=== PATIENT | female | born 1950 | race Caucasian/White ===

== ENCOUNTER 2017-12-23 07:10 | Emergency (ER) | payer BC ==
[2017-12-23 07:19] VITALS: BP 157/99
--- NOTE | 2017-12-23 07:35 | EDM.PDOC ---
ED HPI GENERAL MEDICAL PROBLEM - General Chief Complaint: Upper Extremity Injury/Pain Stated Complaint: PAIN IN LEFT ARM Time Seen by Provider: 12/23/17 07:15 Source of Information: Reports: Patient, RN, RN Notes Reviewed History Limitations: Reports: No Limitations - History of Present Illness INITIAL COMMENTS - FREE TEXT/NARRATIVE: Pt presents to the ER with c/o left arm pain. She denies chest pain, neck or jaw pain, sob. SHe states she was recently on vacation and came home to a letter in the mail that told her she had nodules in her lungs and CAD. She states she has appointments upcoming for this issue. Patient denies N/V/D. She states she does have some anxiety issues at times. Patient rates the left humerus pain a 5/10. Took aspirin at home. 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 Left Arm Pain Score (Numeric/FACES): 5 - Related Data Allergies Allergy/AdvReac Type Severity Reaction Status Date / Time cefaclor Allergy Other Verified 01/03/16 12:35 erythromycin lactobionate Allergy Rash Verified 01/03/16 12:35 [From Erythrocin] Penicillins Allergy Facial Verified 01/03/16 12:35 Swelling Home Meds: Home Meds Amitriptyline HCl [Amitriptyline HCl] 10 mg PO DAILY 07/02/14 [History] Baclofen [Baclofen] 10 mg PO ASDIRECTED PRN 07/02/14 [History] Clotrimazole [Clotrimazole] 10 mg PO ASDIRECTED PRN 07/02/14 [History] Cyanocobalamin (Vitamin B12) [Vitamin B12] 1,000 mcg SQ ASDIRECTED 07/02/14 [ History] Cyclobenzaprine HCl [Cyclobenzaprine HCl] 10 mg PO ASDIRECTED 07/02/14 [History] Diclofenac Sodium [Voltaren] 1 applic TOP ASDIRECTED PRN 07/02/14 [History] Ergocalciferol (Vitamin D2) [Vitamin D2] 1 tab PO ASDIRECTED 07/02/14 [History] Hydrochlorothiazide [Hydrochlorothiazide] 25 mg PO DAILY PRN 07/02/14 [History] Levothyroxine Sodium [Synthroid] 200 mcg PO DAILY 07/02/14 [History] Losartan Potassium [Losartan Potassium] 25 mg PO DAILY 07/02/14 [History] atorvaSTATin Calcium [Atorvastatin Calcium] 20 mg PO BEDTIME 07/02/14 [History] metFORMIN [Glucophage] 1,000 mg PO BIDMEALS 07/02/14 [History] Albuterol [Ventolin HFA] 1 - 2 puff INH Q6HR PRN 12/28/15 [History] Aspirin [Halfprin] 81 mg PO DAILY 12/28/15 [History] Exenatide [Byetta] 10 mcg SQ BIDMEALS 12/28/15 [History] Fexofenadine/Pseudoephedrine [Vandana-D 12 Hour Tablet] 1 tab PO DAILY PRN 12/27 [History] Hydrocodone/Acetaminophen [[place] 10-325] 1 tab PO Q6H PRN 12/28/15 [History] Multivitamin [Multi-Day Vitamins] 1 tab PO DAILY 12/28/15 [History] Varenicline Tartrate [Chantix] 1 tab PO BID 12/28/15 [History] Diclofenac Sodium [Diclofenac Sodium] 1 tab PO TID 01/02/16 [History] Past Medical History HEENT History: Reports: Cataract, Impaired Vision Cardiovascular History: Reports: High Cholesterol, Hypertension Respiratory History: Reports: Other (See Below) Other Respiratory History: CT shows lung nodules Gastrointestinal History: Reports: Cholelithiasis Other Gastrointestinal History: VENTRAL HERNIA Genitourinary History: Reports: None 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 OB/BYN History: MISCARRIAGE Musculoskeletal History: Reports: Back Pain, Chronic, Other (See Below) Other Musculoskeletal History: DJD; STENOIS OF CERVICAL SPINE Neurological History: Reports: Other (See Below) Other Neuro History: PARESTHESIAS Psychiatric History: Reports: None Endocrine/Metabolic History: Reports: Diabetes, Type II, Hypothyroidism, Obesity /BMI 30+, Osteopenia, Vitamin D Deficiency Hematologic History: Reports: B12 Deficiency - Past Surgical History Head Surgeries/Procedures: Reports: None GI Surgical History: Reports: Cholecystectomy, Colonoscopy Female Surgical History: Reports: Section, D&C Musculoskeletal Surgical History: Reports: Carpal Tunnel, Knee Replacement, Other (See Below) Oncologic Surgical History: Reports: None Dermatological Surgical History: Reports: Other (See Below) Social & Family History - Family History Family Medical History: Noncontributory - Tobacco Use Smoking Status *Q: Former Smoker Years of Tobacco use: 40 Used Tobacco, but Quit: Yes Month Tobacco Last Used: ? Second Hand Smoke Exposure: No - Caffeine Use Caffeine Use: Reports: Coffee, Soda, Tea - Alcohol Use Days Per Week of Alcohol Use: 1 Number of Drinks Per Day: 1 Total Drinks Per Week: 1 - Recreational Drug Use Recreational Drug Use: No Review of Systems - Review of Systems Review Of Systems: ROS reveals no pertinent complaints other than HPI. ED EXAM, GENERAL - Physical Exam Exam: See Below Exam Limited By: No Limitations General Appearance: Alert, WD/WN, No Apparent Distress Eye Exam: Bilateral Eye: EOMI, Normal Inspection, PERRL Ears: Normal External Exam, Hearing Grossly Normal Nose: Normal Inspection Throat/Mouth: Normal Inspection, Normal Voice, No Airway Compromise Head: Atraumatic, Normocephalic Neck: Normal Inspection, Supple, Non-Tender, Full Range of Motion Respiratory/Chest: No Respiratory Distress, Lungs Clear, No Accessory Muscle Use , Chest Non-Tender, Decreased Breath Sounds Cardiovascular: Normal Peripheral Pulses, Regular Rate, Rhythm, No Gallop, No JVD, No Murmur, No Rub, Tachycardia Peripheral Pulses: 2+: Radial (L), Radial (R) GI/Abdominal: Normal Bowel Sounds, Soft, Non-Tender, No Organomegaly, No Distention, No Abnormal Bruit, No Mass (Female) Exam: Deferred Rectal (Female) Exam: Deferred Back Exam: Normal Inspection, Full Range of Motion, NT Extremities: Normal Inspection, Normal Range of Motion, Normal Capillary Refill , Pedal Edema, Arm Pain (left) Neurological: Alert, Oriented, CN II-XII Intact, Normal Cognition, Normal Gait, Normal Reflexes, No Motor/Sensory Deficits Psychiatric: Anxious, Tearful Skin Exam: Warm, Dry, Intact, Normal Color, No Rash Lymphatic: No Adenopathy EKG INTERPRETATION EKG Date: 12/23/17 Time: 07:36 Rhythm: Other (sinus tachycardia) Rate (Beats/Min): 105 [place]: Normal P-Wave: Present QRS: Normal ST-T: Normal QT: Normal Comparison: NA - No Prior EKG Course - Vital Signs Last Recorded V/S: Last Vital Signs Temp 98.8 F 12/23/17 07:17 Pulse 118 H 12/23/17 07:17 Resp 18 12/23/17 07:17 BP 157/99 H 12/23/17 07:17 Pulse Ox 96 12/23/17 07:17 - Orders/Labs/Meds Orders: Active Orders 24 hr Category Date Time Status EKG Documentation Completion [RC] STAT Care 12/23/17 07:36 Active Peripheral IV Care [RC] . DIRECTED Care 12/23/17 07:36 Active Chest 2V [CR] Urgent Exams 12/23/17 07:36 Taken Sodium Chloride 0.9% [Saline Flush] Med 12/23/17 07:35 Active 10 ml FLUSH ASDIRECTED PRN Peripheral IV Insertion Adult [OM.PC] Stat Oth 12/23/17 07:35 Ordered Medication Orders Sodium Chloride (Saline Flush) 10 ml FLUSH ASDIRECTED PRN PRN Reason: Keep Vein Open Last Admin: 12/23/17 07:49 Dose: 10 ml Labs: Laboratory Tests 12/23/17 12/23/17 12/23/17 Range/Units 07:44 07:44 07:44 WBC 6.7 (5.0-10.0) 10^3/uL RBC 4.72 (4.2-5.4) 10^6/uL Hgb 13.5 (12.0-16.0) g/dL Hct 42.1 (37.0-47.0) % MCV 89.2 (80-100) fL MCH 28.6 (27.0-34.0) pg MCHC 32.1 L (33.0-35.0) g/dL Plt Count 229 (150-450) 10^3/uL Neut % (Auto) 70.3 (42.2-75.2) % Lymph % (Auto) 17.2 L (20.5-50.1) % [place] % (Auto) 6.7 (2-8) % Eos % (Auto) 5.2 H (1.0-3.0) % Baso % (Auto) 0.6 (0.0-1.0) % Sodium 136 (135-145) mmol/L Potassium 3.5 L (3.6-5.0) mmol/L Chloride 95 L (101-111) mmol/L Carbon Dioxide 30.0 (21.0-31.0) mmol/L Anion Gap 14.5 BUN 21 H (7-18) mg/dL Creatinine 0.8 (0.6-1.3) mg/dL Est Cr Clr Drug Dosing 55.45 mL/min Estimated GFR (MDRD) > 60 BUN/Creatinine Ratio 26.25 Glucose 145 H (74-105) mg/dL Calcium 9.2 (8.4-10.2) mg/dl Total Bilirubin 1.1 H (0.2-1.0) mg/dL AST 22 (10-42) IU/L ALT 17 (10-60) IU/L Alkaline Phosphatase 66 (42-121) IU/L Creatine Kinase 75 (26-174) IU/L Creatine Kinase Index 2.8 H (0-2.4) % CK-MB (CK-2) 2.10 (0.4-4.7) ng/mL Troponin I < 0.02 (0.00-0.02) ng/ml Total Protein 7.5 (6.7-8.2) g/dl Albumin 4.2 (3.2-5.5) g/dl Globulin 3.3 Albumin/Globulin Ratio 1.27 Urine Color (YELLOW) Urine Appearance (CLEAR) Urine pH (5.0-9.0) Ur Specific [place] (1.005-1.030) Urine Protein (NEGATIVE) Urine Glucose (UA) (NEGATIVE) Urine Ketones (NEGATIVE) Urine Occult Blood (NEGATIVE) Urine Nitrite (NEGATIVE) Urine Bilirubin (NEGATIVE) Urine Urobilinogen (0.2-1.0) mg/dL Ur Leukocyte Esterase (NEGATIVE) Urine RBC /HPF Urine WBC (0-5/HPF) /HPF Ur Epithelial Cells /HPF Urine Bacteria (0-FEW/HPF) /HPF 12/23/17 Range/Units 08:04 WBC (5.0-10.0) 10^3/uL RBC (4.2-5.4) 10^6/uL Hgb (12.0-16.0) g/dL Hct (37.0-47.0) % MCV (80-100) fL MCH (27.0-34.0) pg MCHC (33.0-35.0) g/dL Plt Count (150-450) 10^3/uL Neut % (Auto) (42.2-75.2) % Lymph % (Auto) (20.5-50.1) % [place] % (Auto) (2-8) % Eos % (Auto) (1.0-3.0) % Baso % (Auto) (0.0-1.0) % Sodium (135-145) mmol/L Potassium (3.6-5.0) mmol/L Chloride (101-111) mmol/L Carbon Dioxide (21.0-31.0) mmol/L Anion Gap BUN (7-18) mg/dL Creatinine (0.6-1.3) mg/dL Est Cr Clr Drug Dosing mL/min Estimated GFR (MDRD) BUN/Creatinine Ratio Glucose (74-105) mg/dL Calcium (8.4-10.2) mg/dl Total Bilirubin (0.2-1.0) mg/dL AST (10-42) IU/L ALT (10-60) IU/L Alkaline Phosphatase (42-121) IU/L Creatine Kinase (26-174) IU/L Creatine Kinase Index (0-2.4) % CK-MB (CK-2) (0.4-4.7) ng/mL Troponin I (0.00-0.02) ng/ml Total Protein (6.7-8.2) g/dl Albumin (3.2-5.5) g/dl Globulin Albumin/Globulin Ratio Urine Color Yellow (YELLOW) Urine Appearance Clear (CLEAR) Urine pH 7.0 (5.0-9.0) Ur Specific [place] 1.010 (1.005-1.030) Urine Protein Negative (NEGATIVE) Urine Glucose (UA) Negative (NEGATIVE) Urine Ketones Negative (NEGATIVE) Urine Occult Blood Negative (NEGATIVE) Urine Nitrite Negative (NEGATIVE) Urine Bilirubin Negative (NEGATIVE) Urine Urobilinogen 0.2 (0.2-1.0) mg/dL Ur Leukocyte Esterase Trace H (NEGATIVE) Urine RBC 0-5 /HPF Urine WBC 0-5 (0-5/HPF) /HPF Ur Epithelial Cells Moderate H /HPF Urine Bacteria Rare (0-FEW/HPF) /HPF Meds: Medications Generic Name Dose Route Start Last Admin Trade Name Freq PRN Reason Stop Dose Admin Sodium Chloride 10 ml 12/23/17 07:35 12/23/17 07:49 Saline Flush FLUSH 10 ml ASDIRECTED PRN Administration Keep Vein Open Discontinued Medications Generic Name Dose Route Start Last Admin Trade Name [place] PRN Reason Stop Dose Admin Lorazepam 0.5 mg 12/23/17 08:46 12/23/17 08:54 Ativan IVPUSH 12/23/17 08:47 0.5 mg ONETIME ONE Administration - Radiology Interpretation Free Text/Narrative:: Chest xray: No acute findings See rad report Departure - Departure Time of Disposition: 09:42 Disposition: Home, Self-Care 01 Condition: Fair Clinical Impression: Left arm pain, Anxiety - Discharge Information Instructions: Panic Attacks, [id number] Forms: ED Department Discharge Additional Instructions: RX: Ativan (Lorazepam) Follow up with your primary care facility - My Orders Last 24 Hours: My Active Orders 12/23/17 07:35 Sodium Chloride 0.9% [Saline Flush] 10 ml FLUSH ASDIRECTED PRN Peripheral IV Insertion Adult [OM.PC] Stat 12/23/17 07:36 EKG Documentation Completion [RC] STAT Peripheral IV Care [RC] . DIRECTED Chest 2V [CR] Urgent - Assessment/Plan Last 24 Hours: My Active Orders 12/23/17 07:35 Sodium Chloride 0.9% [Saline Flush] 10 ml FLUSH ASDIRECTED PRN Peripheral IV Insertion Adult [OM.PC] Stat 12/23/17 07:36 EKG Documentation Completion [RC] STAT Peripheral IV Care [RC] . DIRECTED Chest 2V [CR] Urgent
[2017-12-23] MEDS: Sodium Chloride 0.9% 10 ML Syringe FLUSH PRN (07:49)
[2017-12-23 08:14] LABS: CHLORIDE,CL 95 mmol/L (101-111); SODIUM,NA 136 mmol/L (135-145)
[2017-12-23] MEDS: LORazepam 2 MG/ML Syringe IVPUSH ONE (08:54)
== END 2017-12-23 09:52 | disposition home or self-care (01) ==
LOC: DL.ED 07:10
DX: M79.602 Pain in left arm (principal); F41.9 Anxiety disorder, unspecified; I10 Essential (primary) hypertension; E11.9 Type 2 diabetes mellitus without complications; E03.9 Hypothyroidism, unspecified; E78.00 Pure hypercholesterolemia, unspecified; Z88.1 Allergy status to other antibiotic agents; Z88.0 Allergy status to penicillin; Z79.899 Other long term (current) drug therapy; Z87.891 Personal history of nicotine dependence
CPT/HCPCS: 36415; 71046; 80053; 81001; 82550; 82553; 84484; 85025; 93005; 96374; 99284; J2060; J7050

== ENCOUNTER 2018-03-19 21:58 | Emergency (ER) | payer BC ==
[2018-03-19 22:27] VITALS: BP 150/76
--- NOTE | 2018-03-19 22:59 | EDM.PDOC ---
ED HPI GENERAL MEDICAL PROBLEM - General Chief Complaint: Respiratory Problem Stated Complaint: SOB Time Seen by Provider: 03/19/18 23:00 Source of Information: Reports: Patient, RN Notes Reviewed History Limitations: Reports: No Limitations - History of Present Illness INITIAL COMMENTS - FREE TEXT/NARRATIVE: ED with c/o SOB and headache today. Notes hx of similar episodes. 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 States has not been given diagnosis yet. Denied chest pain, No cough. Onset gradual. Admits hx of anxiety with similar symptoms in pat. Also has had ativan that has helped when gets these symptoms. - Related Data Allergies Allergy/AdvReac Type Severity Reaction Status Date / Time cefaclor Allergy Other Verified 03/19/18 22:22 erythromycin lactobionate Allergy Rash Verified 03/19/18 22:22 [From Erythrocin] Penicillins Allergy Facial Verified 03/19/18 22:22 Swelling Home Meds: Home Meds Amitriptyline HCl 10 mg PO DAILY 07/02/14 [History] Baclofen 10 mg PO ASDIRECTED PRN 07/02/14 [History] Clotrimazole 10 mg PO ASDIRECTED PRN 07/02/14 [History] Cyanocobalamin (Vitamin B12) [Vitamin B12] 1,000 mcg SQ ASDIRECTED 07/02/14 [ History] Cyclobenzaprine HCl 10 mg PO ASDIRECTED 07/02/14 [History] Diclofenac Sodium [Voltaren] 1 applic TOP ASDIRECTED PRN 07/02/14 [History] Ergocalciferol (Vitamin D2) [Vitamin D2] 1 tab PO ASDIRECTED 07/02/14 [History] Hydrochlorothiazide 25 mg PO DAILY PRN 07/02/14 [History] Levothyroxine Sodium [Synthroid] 200 mcg PO DAILY 07/02/14 [History] Losartan Potassium 25 mg PO DAILY 07/02/14 [History] atorvaSTATin Calcium [Atorvastatin Calcium] 20 mg PO BEDTIME 07/02/14 [History] metFORMIN [Glucophage] 1,000 mg PO BIDMEALS 07/02/14 [History] Albuterol [Ventolin HFA] 1 - 2 puff INH Q6HR PRN 12/28/15 [History] Aspirin [Halfprin] 81 mg PO DAILY 12/28/15 [History] Exenatide [Byetta] 10 mcg SQ BIDMEALS 12/28/15 [History] Fexofenadine/Pseudoephedrine [Vandana-D 12 Hour Tablet] 1 tab PO DAILY PRN 12/27 [History] Hydrocodone/Acetaminophen [[place] 10-325] 1 tab PO Q6H PRN 12/28/15 [History] Multivitamin [Multi-Day Vitamins] 1 tab PO DAILY 12/28/15 [History] Varenicline Tartrate [Chantix] 1 tab PO BID 12/28/15 [History] Diclofenac Sodium 1 tab PO TID 01/02/16 [History] Past Medical History HEENT History: Reports: Cataract, Impaired Vision Cardiovascular History: Reports: High Cholesterol, Hypertension Respiratory History: Reports: Other (See Below) Other Respiratory History: CT shows lung nodules Gastrointestinal History: Reports: Cholelithiasis Other Gastrointestinal History: VENTRAL HERNIA Genitourinary History: Reports: None 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 OB/BYN History: MISCARRIAGE Musculoskeletal History: Reports: Back Pain, Chronic, Other (See Below) Other Musculoskeletal History: DJD; STENOIS OF CERVICAL SPINE Neurological History: Reports: Other (See Below) Other Neuro History: PARESTHESIAS Psychiatric History: Reports: None Endocrine/Metabolic History: Reports: Diabetes, Type II, Hypothyroidism, Obesity /BMI 30+, Osteopenia, Vitamin D Deficiency Hematologic History: Reports: Anemia, B12 Deficiency - Infectious Disease History Infectious Disease History: Reports: C-Difficile, Shingles - Past Surgical History Head Surgeries/Procedures: Reports: None GI Surgical History: Reports: Cholecystectomy, Colonoscopy Female Surgical History: Reports: Section, D&C Musculoskeletal Surgical History: Reports: Carpal Tunnel, Knee Replacement, Other (See Below) Oncologic Surgical History: Reports: None Social & Family History - Family History Family Medical History: Noncontributory - Tobacco Use Smoking Status *Q: Former Smoker Used Tobacco, but Quit: Yes Month/Year Tobacco Last Used: 2 yrs ago Second Hand Smoke Exposure: No - Caffeine Use Caffeine Use: Reports: Coffee - Recreational Drug Use Recreational Drug Use: No ED ROS GENERAL - Review of Systems Review Of Systems: See Below Constitutional: Reports: Malaise. Denies: Fever, Chills HEENT: Reports: No Symptoms Respiratory: Reports: Shortness of Breath. Denies: Wheezing, Cough Cardiovascular: Reports: Lightheadedness. Denies: Chest Pain GI/Abdominal: Reports: No Symptoms Musculoskeletal: Reports: No Symptoms Skin: Reports: No Symptoms Neurological: Reports: Headache Psychiatric: Reports: Anxiety ED EXAM, GENERAL - Physical Exam Exam: See Below Exam Limited By: No Limitations General Appearance: Alert, WD/WN, Anxious Eye Exam: Bilateral Eye: EOMI Ears: Normal External Exam Ear Exam: Bilateral Ear: Auricle Normal, Canal Normal, TM normal Nose: Normal Inspection Throat/Mouth: Normal Inspection Head: Atraumatic, Normocephalic Neck: Normal Inspection Respiratory/Chest: No Respiratory Distress, Lungs Clear, Decreased Breath Sounds (bilateral basess). No: Crackles, Rales, Rhonchi, Wheezing Cardiovascular: Normal Peripheral Pulses, Irregularly Irregular (slightly irregular, underlying sinus with ocassional OVC) GI/Abdominal: Normal Bowel Sounds (Female) Exam: Normal External Exam Back Exam: Normal Inspection Neurological: Alert, Oriented, Normal Cognition Psychiatric: Anxious Skin Exam: Warm, Dry, Intact, Normal Color Course - Vital Signs Last Recorded V/S: Last Vital Signs Temp 97.4 F 03/19/18 22:19 Pulse 94 03/19/18 22:19 Resp 16 03/19/18 22:19 BP 150/76 H 03/19/18 22:19 Pulse Ox 99 03/19/18 22:27 - Orders/Labs/Meds Labs: Laboratory Tests 03/19/18 03/19/18 03/19/18 Range/Units 23:05 23:05 23:05 WBC 9.7 (5.0-10.0) 10^3/uL RBC 4.95 (4.2-5.4) 10^6/uL Hgb 13.9 (12.0-16.0) g/dL Hct 44.1 (37.0-47.0) % MCV 89.1 (80-100) fL MCH 28.1 (27.0-34.0) pg MCHC 31.5 L (33.0-35.0) g/dL Plt Count 280 (150-450) 10^3/uL Neut % (Auto) 70.8 (42.2-75.2) % Lymph % (Auto) 16.8 L (20.5-50.1) % [place] % (Auto) 8.1 H (2-8) % Eos % (Auto) 3.8 H (1.0-3.0) % Baso % (Auto) 0.5 (0.0-1.0) % D-Dimer, Quantitative 388 (0-400) ng/mL Sodium 137 (135-145) mmol/L Potassium 3.9 (3.6-5.0) mmol/L Chloride 96 L (101-111) mmol/L Carbon Dioxide 33.0 H (21.0-31.0) mmol/L Anion Gap 11.9 BUN 19 H (7-18) mg/dL Creatinine 0.8 (0.6-1.3) mg/dL Est Cr Clr Drug Dosing 52.20 mL/min Estimated GFR (MDRD) > 60 BUN/Creatinine Ratio 23.75 Glucose 101 (74-105) mg/dL Calcium 10.0 (8.4-10.2) mg/dl Magnesium 1.8 (1.8-2.5) mg/dL Total Bilirubin 0.4 (0.2-1.0) mg/dL AST 24 (10-42) IU/L ALT 23 (10-60) IU/L Alkaline Phosphatase 82 (42-121) IU/L Troponin I < 0.02 (0.00-0.02) ng/ml Total Protein 7.9 (6.7-8.2) g/dl Albumin 4.5 (3.2-5.5) g/dl Globulin 3.4 Albumin/Globulin Ratio 1.32 Departure - Departure Time of Disposition: 23:57 Disposition: Home, Self-Care 01 Condition: Good Clinical Impression: Anxiety Dyspnea Qualifiers: Dyspnea type: shortness of breath Qualified Code(s): R06.02 - Shortness of breath; R06.00 - Dyspnea, unspecified; R06.01 - Orthopnea - Discharge Information Instructions: Shortness of Breath, Adult, [id number] Referrals: Kimi Murillo NP [Primary Care Provider] - Forms: ED Department Discharge Additional Instructions: follow up if symptoms recur urgent follow up if associated with chest pain, sweating, nausea ativan 0.5mg one every 12 hours as needed for anxiety #6
[2018-03-19 23:31] LABS: CHLORIDE,CL 96 mmol/L (101-111); SODIUM,NA 137 mmol/L (135-145)
--- NOTE | 2018-03-23 11:56 | EKG ---
03/19/2018 - PENNY GALVAN JIMBO - TIME: 11:12 p.m. FINDINGS: EKG shows sinus tachycardia, heart rate of 105 beats per minute with ventricular premature complexes and a prolonged QTc at 498. [facility] /[id number]
== END 2018-03-20 00:02 | disposition home or self-care (01) ==
LOC: DL.ED 21:58
DX: F41.9 Anxiety disorder, unspecified (principal); R06.01 Orthopnea; R06.02 Shortness of breath; E78.00 Pure hypercholesterolemia, unspecified; I10 Essential (primary) hypertension; E11.9 Type 2 diabetes mellitus without complications; E03.9 Hypothyroidism, unspecified; Z88.1 Allergy status to other antibiotic agents; Z88.0 Allergy status to penicillin; Z79.899 Other long term (current) drug therapy; Z87.891 Personal history of nicotine dependence
CPT/HCPCS: 36415; 71046; 80053; 83735; 84484; 85025; 85379; 93005; 99285

== ENCOUNTER 2024-12-14 11:25 | Emergency (ER) | payer MEDICARE, BC ==
[2024-12-14 12:04] LABS: HEMATOCRIT 37.1 % (37.0-47.0); HEMOGLOBIN 11.8 g/dL (12.0-16.0); MEAN CORPUSCULAR HEMOGLOBIN 27.8 pg (27.0-34.0); MEAN CORPUSCULAR HGB CONC 31.8 g/dL (33.0-35.0); MEAN CORPUSCULAR VOLUME 87.3 fL (80-100); PLATELET COUNT,PLT 347 10^3/uL (150-450); RED BLOOD CELL COUNT 4.25 10^6/uL (4.2-5.4); WHITE BLOOD CELL COUNT,WBC 4.1 10^3/uL (5.0-10.0)
[2024-12-14 12:10] LABS: BASOPHILS PERCENT AUTO 1.2 % (0.0-1.0); EOSINOPHILS PERCENT AUTO 1.5 % (1.0-3.0); LYMPHOCYTES PERCENT AUTO 12.2 % (20.5-50.1); MONOCYTES PERCENT AUTO 20.3 % (2-8); NEUTROPHILS PERCENT AUTO 64.8 % (42.2-75.2)
[2024-12-14 12:22] LABS: PROTHROMBIN TIME 10.9 SEC (9.0-12.0)
[2024-12-14 12:27] LABS: A/G RATIO 0.81; ANION GAP 17.1 mEq/L (7-13); BILIRUBIN TOTAL 0.5 mg/dL (0.2-1.0); BUN/CREATININE RATIO 16.7 (No establ ref range); C-REACTIVE PROTEIN 2.74 ng/dL (<=0.50); CALCIUM 9.1 mg/dL (8.5-10.1); CREATININE 1.38 mg/dL (0.55-1.02); EST CRCL DRUG DOSING (CG) 27.81 mL/min; MAGNESIUM 1.4 mg/dL (1.8-2.4); POTASSIUM,K 4.1 mmol/L (3.5-5.1); PROTEIN TOTAL,TP 6.7 g/dL (6.4-8.2)
[2024-12-14 12:30] LABS: EOSINOPHILS PERCENT MAN 2 % (1-3); LYMPHOCYTES PERCENT MAN 17 % (20-50); MONOCYTES PERCENT MAN 23 % (2-8); SEG NEUTROPHILS PERCENT MAN 58 % (42-75)
[2024-12-14] MEDS: Iopamidol 755 Mg/ML 100 ML Bottle IVPUSH ONE (12:35)
[2024-12-14] MEDS: Digoxin 500 MCG/2 ML Amp IVPUSH ONE (12:42)
[2024-12-14] MEDS: Sodium Chloride 0.9% 500 ML IV ONE ×2 (12:48→15:52)
[2024-12-14] MEDS: Magnesium Sulf/Wat 2 GM/50 mL 2 GM in Premix Bag 1 BAG IV ONE (12:49)
[2024-12-14] MEDS: Norepinephrine Bit/D5W Premix 250 ML IV SCH (14:19)
[2024-12-14] MEDS: Lactated Ringers 1,000 ML IV SCH (14:29)
[2024-12-14] MEDS: Heparin Sodium 5,000 Units/ML Vial IVPUSH ONE (14:31)
[2024-12-14] MEDS: Heparin Sodium/0.45% NaCl 25,000 UNITS/500 ML BAG IV SCH (14:51)
[2024-12-14 15:43] VITALS: BP 117/70; PULSE 113
== END 2024-12-14 15:50 ==
LOC: DL.ED 11:25
DX: J96.91 Respiratory failure, unspecified with hypoxia (principal); I26.99 Other pulmonary embolism without acute cor pulmonale; I95.9 Hypotension, unspecified; I48.91 Unspecified atrial fibrillation; R79.89 Other specified abnormal findings of blood chemistry; I10 Essential (primary) hypertension; E78.00 Pure hypercholesterolemia, unspecified; J45.909 Unspecified asthma, uncomplicated; E11.9 Type 2 diabetes mellitus without complications; E03.9 Hypothyroidism, unspecified; E66.9 Obesity, unspecified; Z68.41 Body mass index [BMI] 40.0-44.9, adult; Z88.0 Allergy status to penicillin; Z88.5 Allergy status to narcotic agent; Z88.1 Allergy status to other antibiotic agents; Z88.8 Allergy status to other drugs, medicaments and biological substances; Z79.84 Long term (current) use of oral hypoglycemic drugs; Z79.82 Long term (current) use of aspirin; Z79.51 Long term (current) use of inhaled steroids; Z79.890 Hormone replacement therapy; Z79.899 Other long term (current) drug therapy
CPT/HCPCS: 71275; 80053; 83735; 83880; 84484; 85025; 85379; 85610; 86140; 93005; 93010; 96365; 96366; 96367; 96368; 96375; 96376; 99285; 99285-25; J1160; J1644; J3475; J7040; J7120; Q9967

== ENCOUNTER 2025-02-27 00:50 | Emergency (ER) | payer MEDICARE, BC ==
[2025-02-27] MEDS: Diltiazem 25 MG/5 ML SDV IVPUSH ONE (01:28)
[2025-02-27 01:32] LABS: HEMATOCRIT 22.2 % (37.0-47.0); MEAN CORPUSCULAR HEMOGLOBIN 31.7 pg (27.0-34.0); MEAN CORPUSCULAR HGB CONC 31.1 g/dL (33.0-35.0); MEAN CORPUSCULAR VOLUME 101.8 fL (80-100); PLATELET COUNT,PLT 36 10^3/uL (150-450); RED BLOOD CELL COUNT 2.18 10^6/uL (4.2-5.4); WHITE BLOOD CELL COUNT,WBC 21.3 10^3/uL (5.0-10.0)
[2025-02-27 01:46] LABS: HEMOGLOBIN 6.9 g/dL (12.0-16.0)
[2025-02-27 01:47] LABS: BASOPHILS PERCENT AUTO 0.1 % (0.0-1.0); EOSINOPHILS PERCENT AUTO 0.2 % (1.0-3.0); LYMPHOCYTES PERCENT AUTO 2.6 % (20.5-50.1); MONOCYTES PERCENT AUTO 0.5 % (2-8); NEUTROPHILS PERCENT AUTO 96.6 % (42.2-75.2)
[2025-02-27 01:54] LABS: ALBUMIN 3.3 g/dL (3.4-5.0); BILIRUBIN TOTAL 0.7 mg/dL (0.2-1.0); BUN/CREATININE RATIO 19.4 (No establ ref range); CALCIUM 9.3 mg/dL (8.5-10.1); CREATININE 1.34 mg/dL (0.55-1.02); EST CRCL DRUG DOSING (CG) 28.21 mL/min; MAGNESIUM 1.1 mg/dL (1.8-2.4); PROTEIN TOTAL,TP 6.3 g/dL (6.4-8.2)
[2025-02-27 02:03] LABS: A/G RATIO 1.1
[2025-02-27 02:23] LABS: PERCENT FE SATURATION 85.6 % (20.0-50.0)
[2025-02-27] MEDS: Magnesium Sulfate 2 GM/50 mL 2 GM in Premix Bag 1 BAG IV ONE (02:28)
[2025-02-27] MEDS: Potassium Chloride 10 MEQ Tab.ER PO ONE (02:28)
[2025-02-27] MEDS: LORazepam 0.5 MG Tab PO ONE (02:40)
[2025-02-27 03:28] LABS: BASOPHILS PERCENT AUTO 0.2 % (0.0-1.0); EOSINOPHILS PERCENT AUTO 0.4 % (1.0-3.0); LYMPHOCYTES PERCENT AUTO 2.9 % (20.5-50.1); MEAN CORPUSCULAR HEMOGLOBIN 31.2 pg (27.0-34.0); MEAN CORPUSCULAR HGB CONC 30.6 g/dL (33.0-35.0); MONOCYTES PERCENT AUTO 0.5 % (2-8); PLATELET COUNT,PLT 31 10^3/uL (150-450); RED BLOOD CELL COUNT 2.05 10^6/uL (4.2-5.4); WHITE BLOOD CELL COUNT,WBC 19.3 10^3/uL (5.0-10.0)
[2025-02-27 03:31] LABS: HEMOGLOBIN 6.4 g/dL (12.0-16.0)
[2025-02-27 03:32] LABS: HEMATOCRIT 20.9 % (37.0-47.0)
[2025-02-27] MEDS: Sodium Chloride 0.9% 250 ML IV SCH (03:38)
[2025-02-27 03:52] LABS: BAND PERCENT MAN 11 %; EOSINOPHILS PERCENT MAN 1 % (1-3); LYMPHOCYTES PERCENT MAN 3 % (20-50); MONOCYTES PERCENT MAN 1 % (2-8); SEG NEUTROPHILS PERCENT MAN 84 % (42-75)
[2025-02-27] MEDS: LORazepam 1 MG Tab PO ONE (03:57)
[2025-02-27] MEDS: Levofloxacin/Dextrose 5%-Water 500 MG in Premix Bag 1 BAG IV ONE (05:11)
[2025-02-27 05:50] LABS: APPEARANCE,URINE CLEAR (CLEAR); BILIRUBIN,URINE NEGATIVE (NEGATIVE); COLOR,URINE YELLOW (YELLOW); GLUCOSE,URINE 500 (NEGATIVE); KETONES,URINE NEGATIVE (NEGATIVE); LEUKOCYTE ESTERASE,URINE TRACE (NEGATIVE); NITRITE,URINE NEGATIVE (NEGATIVE); OCCULT BLOOD,URINE NEGATIVE (NEGATIVE); PH,URINE 5.5 (5.0-9.0); PROTEIN,URINE NEGATIVE (NEGATIVE); UROBILINOGEN,URINE 0.2 mg/dL (0.2-1.0)
[2025-02-27] MEDS: Diltiazem 125 MG in Sodium Chloride 0.9% 100 ML IV SCH (06:01)
[2025-02-27 06:11] LABS: RETICULOCYTE COUNT PERCENT < 1 % (0.5-1.5)
[2025-02-27 06:30] VITALS: BP 90/80; PULSE 108
[2025-02-27 06:31] LABS: BACTERIA,URINE FEW /HPF (0-FEW/HPF); EPITHELIAL CELLS,URINE FEW /HPF (NOT SEEN); MUCUS,URINE RARE /LPF (NOT SEEN); RBC,URINE 0-5 /HPF (0-5)
== END 2025-02-27 06:50 | disposition critical access hospital (66) ==
LOC: DL.ED 00:50
DX: I48.91 Unspecified atrial fibrillation (principal); E87.6 Hypokalemia; E83.42 Hypomagnesemia; D64.9 Anemia, unspecified; C34.90 Malignant neoplasm of unspecified part of unspecified bronchus or lung; I10 Essential (primary) hypertension; J45.909 Unspecified asthma, uncomplicated; E11.9 Type 2 diabetes mellitus without complications; E78.00 Pure hypercholesterolemia, unspecified; E03.9 Hypothyroidism, unspecified; Z88.1 Allergy status to other antibiotic agents; Z88.5 Allergy status to narcotic agent; Z88.0 Allergy status to penicillin; Z79.899 Other long term (current) drug therapy; Z79.84 Long term (current) use of oral hypoglycemic drugs; Z79.82 Long term (current) use of aspirin; Z79.51 Long term (current) use of inhaled steroids; Z79.01 Long term (current) use of anticoagulants
CPT/HCPCS: 36415; 36430; 71045; 80053; 81001; 82272; 83540; 83550; 83605; 83615; 83690; 83735; 83880; 84145; 84484; 85025; 85045; 86850; 86900; 86901; 86920; 86922; 87040; 87086; 93005; 93010; 96361; 96365; 96375; 99285; 99291; A9270; J1956; J3475; J3490; P9016

== ENCOUNTER 2025-03-30 13:49 | Emergency (ER) | payer MEDICARE, BC ==
[2025-03-30 14:20] LABS: HEMATOCRIT 31.5 % (37.0-47.0); MEAN CORPUSCULAR HEMOGLOBIN 32.6 pg (27.0-34.0); MEAN CORPUSCULAR HGB CONC 31.7 g/dL (33.0-35.0); MEAN CORPUSCULAR VOLUME 102.6 fL (80-100); PLATELET COUNT,PLT 198 10^3/uL (150-450); RED BLOOD CELL COUNT 3.07 10^6/uL (4.2-5.4); WHITE BLOOD CELL COUNT,WBC 13.8 10^3/uL (5.0-10.0)
[2025-03-30] MEDS: Albuterol/Ipratropium 3.0-0.5 MG/3 ML Neb Soln NEB ONE (14:24)
[2025-03-30 14:42] LABS: ALBUMIN 3.2 g/dL (3.4-5.0); ANION GAP 10.3 mEq/L (7-13); BILIRUBIN TOTAL 0.8 mg/dL (0.2-1.0); BUN/CREATININE RATIO 15.6 (No establ ref range); CALCIUM 8.9 mg/dL (8.5-10.1); CREATININE 1.28 mg/dL (0.55-1.02); EST CRCL DRUG DOSING (CG) 29.54 mL/min; POTASSIUM,K 3.3 mmol/L (3.5-5.1); PROTEIN TOTAL,TP 6.5 g/dL (6.4-8.2)
[2025-03-30 14:43] LABS: A/G RATIO 0.97
[2025-03-30 14:53] LABS: LYMPHOCYTES PERCENT MAN 2 % (20-50); MONOCYTES PERCENT MAN 2 % (2-8); SEG NEUTROPHILS PERCENT MAN 96 % (42-75)
[2025-03-30 15:48] VITALS: BP 125/71; PULSE 115
[2025-03-30] MEDS: Magnesium Oxide 400 MG Tab PO ONE (16:00)
[2025-03-30] MEDS: Potassium Chloride 10 MEQ Tab.ER PO ONE (16:00)
== END 2025-03-30 16:25 | disposition home or self-care (01) ==
LOC: DL.ED 13:49
DX: J44.1 Chronic obstructive pulmonary disease with (acute) exacerbation (principal); I10 Essential (primary) hypertension; E78.00 Pure hypercholesterolemia, unspecified; J45.909 Unspecified asthma, uncomplicated; E11.9 Type 2 diabetes mellitus without complications; E66.9 Obesity, unspecified; Z88.0 Allergy status to penicillin; Z88.5 Allergy status to narcotic agent; Z88.8 Allergy status to other drugs, medicaments and biological substances; Z79.84 Long term (current) use of oral hypoglycemic drugs; Z79.899 Other long term (current) drug therapy; Z79.890 Hormone replacement therapy; Z79.82 Long term (current) use of aspirin
CPT/HCPCS: 36415; 71045; 80053; 83735; 83880; 84484; 85025; 93005; 94640; 99284; 99285; A9270-GY; J1642